=== PATIENT | female | born 1985 | race Caucasian/White ===

== ENCOUNTER 2020-08-14 10:43 | Emergency (ER) | payer OTHER ==
[~2020-08-14 10:43] MED LIST: BACTRIM DS TAB1 EACH PO; IBUPROFEN600 MG PO; PHENERGAN 25 MG25 M1 PO; PROTONIX 20 MG20 MG PO; ZOFRAN4 MG PO
[2020-08-14 11:56] LABS: RED BLOOD COUNT 4.68 M/UL (4.00-5.10); WHITE BLOOD COUNT 6.7 K/UL (4.5-11.0)
[2020-08-14 12:11] LABS: BUN/CREATININE RATIO 18 (0-10)
[2020-08-14] MEDS ORDERED: OMEPRAZOLE20 M1 PO (13:43)
[2020-08-14] MEDS ORDERED: CEPHALEXIN500 M1 PO (13:43)
== END 2020-08-14 14:00 | disposition home or self-care (01) ==
LOC: ER1 10:43
PROVIDERS: Physician Assistant
DX: N39.0 Urinary tract infection, site not specified (principal); Z90.49 Acquired absence of other specified parts of digestive tract; Z88.0 Allergy status to penicillin
CPT/HCPCS: 36415; 80053; 81001; 83690; 84703; 85025; 96374; 99284; C9113

== ENCOUNTER 2020-09-04 10:20 | Emergency (ER) | payer OTHER ==
[~2020-09-04 10:20] MED LIST changes: +CEPHALEXIN500 M1 PO; +OMEPRAZOLE20 M1 PO
== END 2020-09-04 12:00 | disposition home or self-care (01) ==
LOC: ER1 10:20
DX: M79.651 Pain in right thigh (principal); M79.652 Pain in left thigh; Z88.0 Allergy status to penicillin
CPT/HCPCS: 96372; 99283; J1885

== ENCOUNTER 2020-09-30 13:39 | Emergency (ER) | payer OTHER ==
[2020-09-30 15:44] LABS: RED BLOOD COUNT 4.67 M/UL (4.00-5.10); WHITE BLOOD COUNT 6.2 K/UL (4.5-11.0)
[2020-09-30 16:03] LABS: BUN/CREATININE RATIO 24 (0-10)
== END 2020-09-30 17:57 | disposition other institution (70) ==
LOC: ER1 13:39
PROVIDERS: Family Medicine
DX: R51.9 Headache, unspecified (principal); R53.1 Weakness; Z88.0 Allergy status to penicillin; Z79.899 Other long term (current) drug therapy
CPT/HCPCS: 70450; 80053; 80307; 81001; 84439; 84443; 84703; 85025; 99285

== ENCOUNTER → 2020-12-07 | Outpatient (CLI) | payer OTHER | LOC: EMI 10:00 | DX: R94.02 Abnormal brain scan (principal); G43.009 Migraine without aura, not intractable, without status migrainosus; R53.1 Weakness; R20.2 Paresthesia of skin; R90.82 White matter disease, unspecified | CPT/HCPCS: 70553; A9577 ==

== ENCOUNTER → 2020-12-28 | Outpatient (CLI) | payer OTHER ==
[2020-12-28 13:59] LABS: HEMOGLOBIN 14.2 gm/dl (12.3-15.3); RED BLOOD COUNT 4.76 M/UL (4.00-5.10); WHITE BLOOD COUNT 6.8 K/UL (4.5-11.0)
[2020-12-28 14:22] LABS: BUN/CREATININE RATIO 16 (0-10)
[2020-12-31 13:13] LABS: ALDOLASE 1.3 U/L (3.3-10.3); ANGIOTENSIN-CONVERTING ENZYME 47 U/L (14-82)
== END ==
LOC: LAB 13:23
PROVIDERS: Family Medicine; Nurse Practitioner Family
DX: Z00.00 Encounter for general adult medical examination without abnormal findings (principal); E55.9 Vitamin D deficiency, unspecified; E78.5 Hyperlipidemia, unspecified; R53.1 Weakness; R94.02 Abnormal brain scan; G43.009 Migraine without aura, not intractable, without status migrainosus; R20.2 Paresthesia of skin
CPT/HCPCS: 36415; 80053; 80061; 82085; 82164; 82607; 84443; 85027; 86038

== ENCOUNTER → 2021-02-25 | Outpatient (CLI) | payer OTHER | LOC: EMI 10:00 | DX: M54.12 Radiculopathy, cervical region (principal); G24.9 Dystonia, unspecified | CPT/HCPCS: 72141 ==

== ENCOUNTER 2021-05-10 13:17 | Emergency (ER) | payer OTHER ==
[2021-05-10] MEDS ORDERED: ROBAXIN 750 MG750 MG PO (14:21)
[2021-05-10] MEDS ORDERED: MOBIC15 MG PO (14:21)
== END 2021-05-10 14:40 | disposition home or self-care (01) ==
LOC: ER1 13:17
DX: S33.5XXA Sprain of ligaments of lumbar spine, initial encounter (principal); S39.012A Strain of muscle, fascia and tendon of lower back, initial encounter; Z88.0 Allergy status to penicillin; Z90.49 Acquired absence of other specified parts of digestive tract; X50.9XXA Other and unspecified overexertion or strenuous movements or postures, initial encounter
CPT/HCPCS: 96372; 99283; J1100

== ENCOUNTER 2021-06-24 16:40 | Emergency (ER) | payer OTHER ==
[~2021-06-24 16:40] MED LIST changes: +MOBIC15 MG PO; +ROBAXIN 750 MG750 MG PO
[2021-06-24 18:30] LABS: HEMOGLOBIN 13.9 gm/dl (12.3-15.3); RED BLOOD COUNT 4.66 M/UL (4.00-5.10); WHITE BLOOD COUNT 9.6 K/UL (4.5-11.0)
[2021-06-24 19:02] LABS: BUN/CREATININE RATIO 22 (0-10)
[2021-06-24] MEDS ORDERED: BACTRIM DS TAB1 EACH PO (20:49)
[2021-06-24] MEDS ORDERED: IBUPROFEN600 MG PO (20:49)
[2021-06-24] MEDS ORDERED: PERCOCET 5/325 T1 EA PO (20:49)
[2021-06-24] MEDS ORDERED: PROTONIX 40 MG40 M1 PO (20:49)
== END 2021-06-24 21:10 | disposition home or self-care (01) ==
LOC: ER1 16:40
PROVIDERS: Physician Assistant
DX: M26.601 Right temporomandibular joint disorder, unspecified (principal); R14.0 Abdominal distension (gaseous); N39.0 Urinary tract infection, site not specified; Z88.0 Allergy status to penicillin
CPT/HCPCS: 80053; 81001; 83690; 84703; 85025; 96374; 99283; C9113; Q9967

== ENCOUNTER 2021-09-09 12:39 | Emergency (ER) | payer OTHER ==
[~2021-09-09 12:39] MED LIST changes: +PERCOCET 5/325 T1 EA PO; +PROTONIX 40 MG40 M1 PO
[2021-09-09 13:30] LABS: HEMOGLOBIN 13.9 gm/dl (12.3-15.3); RED BLOOD COUNT 4.65 M/UL (4.00-5.10); WHITE BLOOD COUNT 6.4 K/UL (4.5-11.0)
[2021-09-09 13:58] LABS: BUN/CREATININE RATIO 13 (0-10)
[2021-09-09] MEDS ORDERED: PREDNISONE20 MG PO (14:53)
[2021-09-09] MEDS ORDERED: PROVENTIL HFA6.7 GM INH (14:54)
== END 2021-09-09 17:15 | disposition home or self-care (01) ==
LOC: ER1 12:39
PROVIDERS: Nurse Practitioner
DX: J40 Bronchitis, not specified as acute or chronic (principal); Z20.822 Contact with and (suspected) exposure to COVID-19; Z88.0 Allergy status to penicillin
CPT/HCPCS: 0240U; 71045; 80053; 81001; 84703; 85025; 96374; 99283; J1100

== ENCOUNTER 2021-12-15 19:55 | Emergency (ER) | payer OTHER ==
[~2021-12-15 19:55] MED LIST changes: +PREDNISONE20 MG PO; +PROVENTIL HFA6.7 GM INH
[2021-12-15 20:38] LABS: HEMOGLOBIN 13.3 gm/dl (12.3-15.3); RED BLOOD COUNT 4.53 M/UL (4.00-5.10); WHITE BLOOD COUNT 6.8 K/UL (4.5-11.0)
[2021-12-15 21:00] LABS: BUN/CREATININE RATIO 17 (0-10)
[2021-12-16] MEDS ORDERED: VISTARIL50 MG PO (01:38)
[2021-12-16] MEDS ORDERED: CEPHALEXIN500 M1 PO (01:38)
== END 2021-12-16 01:46 | disposition home or self-care (01) ==
LOC: ER1 19:55
PROVIDERS: Physician Assistant
DX: N39.0 Urinary tract infection, site not specified (principal); R06.4 Hyperventilation; R22.0 Localized swelling, mass and lump, head; Z88.0 Allergy status to penicillin
CPT/HCPCS: 80053; 81001; 83690; 84703; 85025; 87086; 99284; Q0177

== ENCOUNTER 2022-03-08 14:36 | Emergency (ER) | payer OTHER ==
[~2022-03-08 14:36] MED LIST changes: +VISTARIL50 MG PO
[2022-03-08 15:43] LABS: HEMOGLOBIN 13.1 gm/dl (12.3-15.3); RED BLOOD COUNT 4.47 M/UL (4.00-5.10); WHITE BLOOD COUNT 6.5 K/UL (4.5-11.0)
[2022-03-08 16:18] LABS: BUN/CREATININE RATIO 20 (0-10)
== END 2022-03-08 19:48 | disposition home or self-care (01) ==
LOC: ER1 14:36
PROVIDERS: Emergency Medicine
DX: R10.9 Unspecified abdominal pain (principal); R07.81 Pleurodynia
CPT/HCPCS: 80053; 81001; 82550; 82553; 83690; 84484; 84703; 85025; 93005; 96374; 96375; 99284; J2270; J2405; Q9967